=== PATIENT | male | born 1985 | race Caucasian/White ===

== ENCOUNTER 2021-04-22 09:43 | Emergency (ER) | payer MEDICAID ==
[~2021-04-22] VITALS: Ht 188 cm; Wt 107.0 kg
[2021-04-22] MEDS ORDERED: KETOROLAC 60MG/2ML VIAL IM ONE (11:15)
[2021-04-22] MEDS ORDERED: DIAZEPAM 2 MG TABLET PO ONE (11:15)
[2021-04-22] MEDS ORDERED: PREDNISONE 20MG TABLET PO ONE (11:15)
[2021-04-22] MEDS ORDERED: HYDROCODONE/ACETAMINOPHEN 5/325MG TABLET PO ONE (13:45)
[2021-04-22] MEDS ORDERED: CYCLOBENZAPRINE 10MG TABLET PO ONE (14:30)
[2021-04-22] MEDS ORDERED: CYCL10TA7 MT (14:44)
[2021-04-22] MEDS ORDERED: HYDR-4001 MT (14:44)
[2021-04-22] MEDS ORDERED: P20 MT (14:44)
[2021-04-22 14:57] VITALS: BP 123/81
== END 2021-04-22 14:58 | disposition home or self-care (01) ==
LOC: ER 09:43
DX: M54.50 Low back pain, unspecified (principal); Z87.81 Personal history of (healed) traumatic fracture
CPT/HCPCS: 72131; 96372; 99284; J1885; J7512